=== PATIENT | male | born 1990 | race Two or more races ===

== ENCOUNTER 2023-07-17 03:50 | Emergency (ER) | payer SELFPAY ==
[~2023-07-17] VITALS: Ht 172.7 cm; Wt 81.8 kg
[2023-07-17 04:06] VITALS: BP 139/81; PULSE 110; RESP 18; TEMP 98.8; O2SAT 97
[2023-07-17] MEDS ORDERED: DexAMETHasone SOD PHOS 10MG/1ML VIAL INJ IM ONE (04:30)
[2023-07-17] MEDS ORDERED: METHOCARBAMOL 500 MG TAB PO ONE (04:30)
[2023-07-17] MEDS ORDERED: KETOROLAC TROMETH 60MG/2ML VIAL IM ONE (04:30)
[2023-07-17] MEDS ORDERED: CYCL-839 PO (04:37)
[2023-07-17] MEDS ORDERED: HYDR-4902 PO (04:37)
== END 2023-07-17 05:11 | disposition home or self-care (01) ==
LOC: ER 03:50
DX: M62.830 Muscle spasm of back (principal); M54.31 Sciatica, right side
CPT/HCPCS: 72100; 96372; 99284; J1100; J1885